=== PATIENT | male | born 1990 | race Two or more races ===

== ENCOUNTER 2017-11-11 13:18 | Emergency (ER) | payer SELFPAY ==
[~2017-11-11] VITALS: Ht 177.8 cm; Wt 81.6 kg
[2017-11-11 13:30] VITALS: BP 120/80
[2017-11-11] MEDS ORDERED: SODIUM CHLORIDE 0.9% 1,000 ML IV ONE ×2 (13:31)
== END 2017-11-11 16:13 | disposition left against medical advice (07) ==
LOC: ER 13:18 → EDBD 13:18 → ER 16:13
DX: R55 Syncope and collapse (principal); F17.210 Nicotine dependence, cigarettes, uncomplicated; F12.10 Cannabis abuse, uncomplicated; F15.10 Other stimulant abuse, uncomplicated; Z53.29 Procedure and treatment not carried out because of patient's decision for other reasons
CPT/HCPCS: 70450

== ENCOUNTER 2017-12-10 02:06 | Emergency (ER) | payer OTHER ==
[~2017-12-10] VITALS: Ht 177.8 cm; Wt 95.3 kg
[2017-12-10 02:18] VITALS: BP 133/62
== END 2017-12-10 04:43 | disposition left against medical advice (07) ==
LOC: EDUNIT# 02:06 → EDBD 02:06 → ER 02:06
DX: R10.9 Unspecified abdominal pain (principal); Z53.21 Procedure and treatment not carried out due to patient leaving prior to being seen by health care provider
CPT/HCPCS: 74176

== ENCOUNTER 2018-02-15 20:12 | Emergency (ER) | payer OTHER ==
[~2018-02-15] VITALS: Ht 162.6 cm; Wt 72.6 kg
[2018-02-15] MEDS ORDERED: SODIUM CHLORIDE 0.9% 1,000 ML IV ONE ×2 (21:15→22:30)
[2018-02-15 21:53] LABS: Basophils # (auto) 0 uL; Basophils % (auto) 0.4 % (0.0-2.0); Eosinophils # (auto) 0.1 uL; Eosinophils % (auto) 1.2 % (0.0-7.0); Hematocrit 47.7 % (41.0-53.0); Hemoglobin 16.2 g/dL (13.5-17.5); Mean Corpuscular Hemoglobin 30.2 pg (28.0-32.0); Mean Corpuscular Hgb Conc. 33.8 g/dL (32.0-36.0); Mean Corpuscular Volume 89.1 fL (80.0-100.0); Monocytes # (auto) 0.6 uL; Monocytes % (auto) 8.6 % (0.0-12.0); Neutrophils # (auto) 4.2 uL; Neutrophils % (auto) 60.8 % (37.0-80.0); Nucleated Red Blood Cells % 0.1 %; Platelet Count (auto) 260 10^3/uL (140-450); Red Blood Cells 5.36 10^6/uL (4.5-5.90); Red Cell Distribution Width 13.5 % (11.8-14.3); White Blood Cell 6.9 10^3/uL (4.4-10.8)
[2018-02-15 22:08] LABS: Albumin 3.8 g/dL (3.4-5.0); Amylase 155 U/L (25-115); Anion Gap 6 (5-15); Blood Urea Nitrogen 13 mg/dL (7-18); Calcium 8.5 mg/dL (8.5-10.1); Carbon Dioxide 25 mmol/L (21-32); Chloride 107 mmol/L (98-107); Glucose 87 mg/dL (74-106); Lipase 1011 U/L (73-393); Magnesium 2.2 mg/dL (1.6-2.6); Potassium 3.6 mmol/L (3.5-5.1); Sodium 138 mmol/L (136-145)
[2018-02-15 22:14] LABS: Alanine Aminotransferase 23 U/L (16-61); Alkaline Phosphatase 110 U/L (45-117); Aspartate Aminotransferase 13 U/L (15-37); BUN/Creatinine Ratio 14.4; Bilirubin, Total 0.5 mg/dL (0.2-1.0); GFR African American 131 mL/min; GFR Non-African American 108 mL/min; Total Protein 7.2 g/dL (6.4-8.2)
[2018-02-15 22:27] LABS: INR 1.1 (0.9-1.15); Partial Thromboplastin Time 30.3 sec (23.78-33.04); Prothrombin Time 11.7 sec (9.27-12.13)
[2018-02-15] MEDS ORDERED: IOHEXOL 300 MG/ML 100ML BOTTLE IJ ONE (22:42)
[2018-02-16 00:04] LABS: Urine Bacteria NONE SEEN /hpf (None Seen); Urine Blood Negative /uL (Negative); Urine Specific Gravity 1.017 (1.001-1.035); Urine Sperm PRESENT /hpf (None Seen); Urine WBC <1 /hpf (0 - 3)
[2018-02-16 00:19] LABS: Alcohol, Urine < 3.0 mg/dL (0-5); Amphetamine Screen, Urine POSITIVE (NEGATIVE); Barbiturate Scree,Urine NEGATIVE (NEGATIVE); Benzodiazephine Screen, Urine NEGATIVE (NEGATIVE); Cannabinoid Screen, Urine NEGATIVE (NEGATIVE); Cocaine Screen, Urine NEGATIVE (NEGATIVE); Opiate Scree,Urine NEGATIVE (NEGATIVE); Phencyclidine Screen, Urine NEGATIVE (NEGATIVE)
[2018-02-16 01:55] VITALS: BP 110/73
== END 2018-02-16 01:57 | disposition home or self-care (01) ==
LOC: ER 20:12 → EDBD 20:12 → ER 02-16 01:57
DX: R10.9 Unspecified abdominal pain (principal); F17.210 Nicotine dependence, cigarettes, uncomplicated; F12.10 Cannabis abuse, uncomplicated; F15.10 Other stimulant abuse, uncomplicated
CPT/HCPCS: 36415; 74177; 80053; 80307; 80320; 81001; 82150; 83605; 83690; 83735; 84484; 85025; 85610; 85730; 93005; 99284; J7030; Q9967

== ENCOUNTER 2019-01-09 00:33 | Emergency (ER) | payer OTHER ==
[~2019-01-09] VITALS: Ht 180.3 cm; Wt 99.8 kg
[2019-01-09 02:08] LABS: Basophils # (auto) 0 uL; Basophils % (auto) 0.5 % (0.0-2.0); Eosinophils # (auto) 0 uL; Eosinophils % (auto) 0.4 % (0.0-7.0); Hemoglobin 14.6 g/dL (13.5-17.5); Lymphocytes # (auto) 2.5 uL; Lymphocytes % (auto) 28.4 % (10.0-50.0); Mean Corpuscular Hemoglobin 30.4 pg (28.0-32.0); Mean Corpuscular Hgb Conc. 34.8 g/dL (32.0-36.0); Mean Corpuscular Volume 87.4 fL (80.0-100.0); Monocytes # (auto) 1.1 uL; Neutrophils # (auto) 5.2 uL; Neutrophils % (auto) 58.7 % (37.0-80.0); Nucleated Red Blood Cells % 0.1 %; Platelet Count (auto) 241 10^3/uL (140-450); White Blood Cell 8.8 10^3/uL (4.4-10.8)
[2019-01-09 02:29] LABS: Albumin 3.8 g/dL (3.4-5.0); Anion Gap 6 (5-15); Blood Alcohol < 3.0 mg/dL (0-5); Blood Urea Nitrogen 18 mg/dL (7-18); Calcium 8.4 mg/dL (8.5-10.1); Carbon Dioxide 28 mmol/L (21-32); Chloride 108 mmol/L (98-107); GFR African American 93 mL/min; GFR Non-African American 77 mL/min; Glucose 92 mg/dL (74-106); Potassium 3.3 mmol/L (3.5-5.1); Salicylate < 1.7 mg/dL (2.8-20.0); Sodium 142 mmol/L (136-145)
[2019-01-09 02:30] LABS: Acetaminophen < 2.0 ug/mL (10-30)
[2019-01-09 02:32] LABS: Alanine Aminotransferase 37 U/L (16-61); Alkaline Phosphatase 103 U/L (45-117); Aspartate Aminotransferase 43 U/L (15-37); Bilirubin, Total 1.3 mg/dL (0.2-1.0); Total Protein 6.9 g/dL (6.4-8.2)
[2019-01-09 06:24] VITALS: BP 104/59
== END 2019-01-09 08:53 | disposition left against medical advice (07) ==
LOC: EDBD 00:33 → ER 00:36
DX: F32.9 Major depressive disorder, single episode, unspecified (principal); F41.9 Anxiety disorder, unspecified; F17.210 Nicotine dependence, cigarettes, uncomplicated; F12.10 Cannabis abuse, uncomplicated; F15.10 Other stimulant abuse, uncomplicated; R45.851 Suicidal ideations
CPT/HCPCS: 36415; 80053; 80320; 80329; 85025

== ENCOUNTER 2022-04-28 07:11 | Emergency (ER) | payer MEDICAID, OTHER ==
[~2022-04-28] VITALS: Ht 170.2 cm; Wt 77.2 kg
[2022-04-28 07:40] VITALS: BP 119/68
== END 2022-04-28 09:09 | disposition left against medical advice (07) ==
LOC: EDBD 07:11 → ER 07:11
DX: R10.31 Right lower quadrant pain (principal); R11.2 Nausea with vomiting, unspecified; Z53.21 Procedure and treatment not carried out due to patient leaving prior to being seen by health care provider
CPT/HCPCS: 81003

== ENCOUNTER 2023-06-03 04:15 | Emergency (ER) | payer SELFPAY ==
[~2023-06-03] VITALS: Ht 170.2 cm; Wt 77.7 kg
[2023-06-03] MEDS ORDERED: BUSP5TAB51 PO (06:52)
[2023-06-03 07:45] VITALS: BP 130/81; PULSE 84; RESP 16; TEMP 97.7; O2SAT 96
== END 2023-06-03 09:11 | disposition home or self-care (01) ==
LOC: EDBD 04:15 → ER 04:15
DX: F41.9 Anxiety disorder, unspecified (principal); F15.10 Other stimulant abuse, uncomplicated; F32.9 Major depressive disorder, single episode, unspecified; F17.210 Nicotine dependence, cigarettes, uncomplicated; F10.90 Alcohol use, unspecified, uncomplicated; Y90.0 Blood alcohol level of less than 20 mg/100 ml